=== PATIENT | female | born 1980 | race African-American/Black ===

== ENCOUNTER 2016-07-25 16:32 | Emergency (ER) | payer OTHER ==
--- NOTE | ~2016-07-25 | CT4 ---
[facility] A Service of [facility] RADIOLOGY TEXT RESULTS PATIENT: HEMANTH STACK LOCATION: [facility] : [birth year] UNIT #: [id number] AGE: [address]: Misbah Abraham MD SEX: F ORDER DR: [id number] [facility] [address]. [place], [place] [address] [id number] E MR#: [id number] Acc #: [id number] NAME: HEMANTH STACK : 1980 SEX: F STUDY DATE/TIME: 07/25/2016 18:25 UNIT: [facility] ROOM: STUDY DESCRIPTION: CT Abd and Pelv Wo Cont Attending Physician: Misbah Abraham Ordering Physician: Ed Christiano Mitchell M.D. Primary Care Physician: Marialuisa Stevens M.D. MEDICAL IMAGING REPORT This report is preliminary unless electronic signature is present EXAM CT abdomen and pelvis without contrast HISTORY Abdomen pain and nausea for 3 days. Right side and back pain. TECHNIQUE CT abdomen and pelvis was performed without contrast. This CT exam was performed with one or more of the following radiation dose reduction techniques: automatic exposure control, adjustment of mA and/or kV according to patient size, and iterative reconstruction. FINDINGS CT abdomen: Mild multifocal linear scarring in the lung bases. Small hiatal hernia. Cholecystectomy. The liver, spleen, pancreas, kidneys, and adrenal glands are normal. No bowel dilatation. No ascites or adenopathy. Implanted catheter extends from the lower thoracic spinal canal along the right posterior subcutaneous tissues into the right abdomen. CT pelvis: Surgical clips in the right lower quadrant. IUD within the uterus. Small amount of free fluid in the pelvis. The adnexa are unremarkable. No bowel dilatation. IMPRESSION 1. No acute findings in the abdomen or pelvis. 2. No bowel obstruction or urinary obstruction. No inflammatory stranding. 3. Minimal free fluid in the pelvis is likely incidental. 4. Cholecystectomy and appendectomy and shunt tubing extending from the [facility] A Service of [facility] RADIOLOGY TEXT RESULTS PATIENT: HEMANTH STACK LOCATION: [facility] : [birth year] UNIT #: [id number] AGE: [address]: Misbah Abraham MD SEX: F ORDER DR: lower thoracic canal into the right lower abdomen. IUD within the uterus. Dictated by... Neel Ramírez M.D. THIS IS AN ELECTRONICALLY VERIFIED REPORT Neel Ramírez M.D. at 07/26/2016 2:41 PM DFL/to TD: 07/25/2016 21:19 JOB #: [id number] MEDICAL IMAGING REPORT Page 1 of 1 COPY
[~2016-07-25 16:32] MED LIST: 8 HOUR650 MG PO; ADVAIR 5001 DISK W/D; AL-MAG HYDROX-S30 M1 PO; ALBUTEROL1.25 MG/3 INH; ALBUTEROL17 GM; ALLOPURINOL300 MG PO; AMITRIPTYLINE H25 MG PO; AMITRIPTYLINE H75 MG PO; AMLODIPINE BESY10 MG PO; ANAPROX DS550 M1 PO; DELTASONE20 MG PO; ELIQUIS5 MG PO; ESCITALOPRAM OX10 MG PO; FIORICET1 TAB PO; GRALISE600 MG PO; IMITREX50 MG PO; INDOMETHACIN50 MG PO; KLONOPIN0.5 MG PO; LAMICTAL XR200 MG PO; LEVAQUIN750 MG PO; LEVOXYL0.137 MG PO; LEXAPRO5 MG PO; MEDROL DOSEPAK4 MG PO; MEDROL4 MG PO; MORPHINE SULFAT60 M4 PO; MS CONTIN60 M1 PO; NEURONTIN600 MG PO; NICOTINE TRANSD14 MG EXT; NITROFURANTOIN100 M3 PO; NYSTATIN5 ML PO; ONDANSETRON ODT4 MG PO; OXYCONTIN40 MG PO; PANTOPRAZOLE SO40 MG PO; PERCOCET 7.5-31 EACH PO; PERCOCET PO; PHENERGAN25 M1 PO; PHENERGAN25 MG PO; PREDNISONE; QVAR7.3 G1 INH; ROBITUSSIN A-C10 ML PO; SYNTHROID PO; TOPAMAX; TOPAMAX PO; TOPAMAX50 MG PO; VITAMIN D350000 UNIT PO; ZANAFLEX4 M1 PO; ZOFRAN PO; ZYLOPRIM PO
[2016-07-25 17:10] LABS: BASOPHIL% 0.5 % (0-2.5); EOSINOPHIL% 0.2 % (0.0-7.0); HEMATOCRIT 46.3 % (35.0-45.0); HEMOGLOBIN 14.3 gm/dL (12.0-16.0); LYMPHOCYTE# 2.2 X10e3 (1.0-3.5); MEAN CELL VOLUME 90.2 FL (83-96); MEAN CORPUSCULAR HEMOGLOBIN 27.9 PG (28-34); MONOCYTE# 0.5 X10e3 (0-1.0); MONOCYTE% 4.9 % (3.0-12.0); NEUTROPHIL# 7.5 X10e3 (1.5-7.1); NEUTROPHIL% 73.4 % (40-75); PLATELET COUNT 321 X10e3 (140-420); RED BLOOD COUNT 5.13 X10e (3.90-5.30); WHITE BLOOD COUNT 10.3 X10e3 (4.0-10.5)
[2016-07-25 17:12] LABS: DIFF IND NO
[2016-07-25 17:30] LABS: ALBUMIN SERUM 4.6 g/dL (3.5-5.0); BILIRUBIN, DIRECT 0.1 mg/dL (0.0-0.2); BILIRUBIN,INDIRECT 0.6 mg/dL (0.0-0.9); BILIRUBIN,TOTAL 0.7 mg/dL (0.2-2.0); CALCIUM SERUM 9.8 mg/dL (8.4-10.2); POTASSIUM 3.8 mmol/L (3.5-5.1); PROTEIN TOTAL SERUM 9.2 g/dL (6.0-8.3)
[2016-07-25 17:42] LABS: URINE SOURCE CLEAN CATCH
[2016-07-25 17:51] LABS: URINE APPEARANCE CLEAR; URINE BILIRUBIN NEG (NEG); URINE BLOOD NEG (NEG); URINE COLOR DK YELLOW; URINE GLUCOSE NEG (NEG); URINE KETONE 2+ (NEG); URINE LEUKOCYTE ESTERASE NEG (NEG); URINE NITRATE NEG (NEG); URINE PROTEIN TRACE (NEG); URINE SPECIFIC GRAVITY 1.025 (1.003-1.035)
== END 2016-07-25 20:07 | disposition home or self-care (01) ==
LOC: CED 16:32
PROVIDERS: Emergency Medicine
DX: R10.9 Unspecified abdominal pain (principal); Z90.49 Acquired absence of other specified parts of digestive tract; F17.210 Nicotine dependence, cigarettes, uncomplicated
CPT/HCPCS: 36415; 74176; 80048; 80076; 81003; 83690; 84703; 85025; 96361; 96374; 96375; 99284; J1170; J2405

== ENCOUNTER 2016-11-01 12:54 | Emergency (ER) | payer OTHER ==
[~2016-11-01] VITALS: Ht 172.7 cm; Wt 99.8 kg
--- NOTE | ~2016-11-01 | CT71 ---
[facility] A Service of [facility] RADIOLOGY TEXT RESULTS PATIENT: HEMANTH STACK LOCATION: [facility] : [birth year] UNIT #: [id number] AGE: [address]: Ross Elena MD SEX: F ORDER DR: [id number] [place] [id number] [facility]. [place], [place] [address] [id number] E MR#: [id number] Acc #: [id number] NAME: HEMANTH STACK : 1980 SEX: F STUDY DATE/TIME: 11/01/2016 14:11 UNIT: [facility] ROOM: STUDY DESCRIPTION: CT Head Wo Contrast Attending Physician: Ross Elena M.D. Ordering Physician: Ross Elena M.D. Primary Care Physician: Marialuisa Stevens M.D. MEDICAL IMAGING REPORT This report is preliminary unless electronic signature is present EXAM Head CT without contrast HISTORY Headache for the past 4 days. TECHNIQUE Axial images were obtained without contrast. This CT exam was performed with one or more of the following radiation dose reduction techniques: Automatic exposure control, adjustment of mA and/or kV according to patient size, and iterative reconstruction. FINDINGS Axial noncontrast images were obtained from the skull base to the vertex. Ventricular size and configuration are normal. There is no evidence of acute infarct or hemorrhage. There are no extra-axial fluid collections. No mass lesion or mass effect is seen. There are no skull fractures. IMPRESSION Normal noncontrast head CT. Dictated by... Ross Allen M.D. THIS IS AN ELECTRONICALLY VERIFIED REPORT Ross Allen M.D. at 11/02/2016 7:07 AM RADHA/sariah TD: 11/01/2016 23:55 JOB #: [id number] MEDICAL IMAGING REPORT [facility] A Service [facility] RADIOLOGY TEXT RESULTS PATIENT: HEMANTH STACK LOCATION: [facility] : [birth year] UNIT #: [id number] AGE: [address]: Ross Elena MD SEX: F ORDER DR: Page 1 of 1 COPY
--- NOTE | ~2016-11-01 | CT52 ---
[facility] A Service of [facility] RADIOLOGY TEXT RESULTS PATIENT: HEMANTH STACK LOCATION: [facility] : [birth year] UNIT #: [id number] AGE: [address]: Ross Elena MD SEX: F ORDER DR: [id number] [address] [place], [place] [address] [id number] E MR#: [id number] Acc #: [id number] NAME: HEMANTH STACK : 1980 SEX: F STUDY DATE/TIME: 11/01/2016 16:10 UNIT: [facility] ROOM: STUDY DESCRIPTION: CT Cervical Spine Wo Cont Attending Physician: Ross Elena M.D. Ordering Physician: Ross Elena M.D. Primary Care Physician: Marialuisa Stevens M.D. MEDICAL IMAGING REPORT This report is preliminary unless electronic signature is present EXAM Cervical spine CT. HISTORY Right arm numbness, accompanied by neck pain over the past 4 days. TECHNIQUE Thin section imaging was obtained from the skull base to the upper thoracic spine and evaluated at bone and soft tissue windows with multiplanar reformats. This CT exam was performed with one or more of the following radiation dose reduction techniques: automatic exposure control, adjustment of mA and/or kV according to patient size, and iterative reconstruction. FINDINGS Alignment is normal. There is a small anterior osteophyte at C5-6. The other cervical discs are normal. The spinal canal and foramina are widely patent at all cervical levels. Facets are intact. No fractures or destructive bone lesions are seen. Nonspecific mixed reticular and ground-glass infiltrates are seen at the lung apices. Paraspinous soft tissues are otherwise unremarkable. Previous thyroidectomy. Multifocal pulmonary infiltrates were seen on a previous chest CT from 06/13/2015. The lung apices show progression of disease since that time. IMPRESSION 1. Negative cervical spine CT except for a small anterior osteophyte at C5-6. 2. Bilateral mixed ground-glass and reticular lung infiltrates at the apices showing progression since the previous CT in 2016. Dictated by... [facility] A Service of [facility] RADIOLOGY TEXT RESULTS PATIENT: HEMANTH STACK LOCATION: [facility] : [birth year] UNIT #: [id number] AGE: [address]: Ross Elena MD SEX: F ORDER DR: Ross Allen M.D. THIS IS AN ELECTRONICALLY VERIFIED REPORT Ross Allen M.D. at 11/02/2016 7:07 AM RADHA/katharina TD: 11/01/2016 23:50 JOB #: [id number] MEDICAL IMAGING REPORT Page 1 of 1 COPY
== END 2016-11-01 17:10 | disposition home or self-care (01) ==
LOC: CED 12:54
DX: R51 Headache (principal); M54.10 Radiculopathy, site unspecified; E11.9 Type 2 diabetes mellitus without complications; I10 Essential (primary) hypertension; F17.200 Nicotine dependence, unspecified, uncomplicated; Z88.8 Allergy status to other drugs, medicaments and biological substances
CPT/HCPCS: 70450; 72125; 84703; 96374; 96375; 99284; J0780; J1100; J1200; J1885